=== PATIENT | female | born 1960 | race Caucasian/White ===

== ENCOUNTER 2017-08-25 07:32 | Day surgery (SDC) | payer MEDICAID ==
[~2017-08-25 07:32] MED LIST: CEFAZOLIN 2 GM/50 ML (PMX) 50 ML IVPB; LIDOCAINE 2% (SDV) 5 ML INJ; SOD CHLORIDE 0.9% 1,000 ML IV
[2017-08-25] MEDS ORDERED: PROPOFOL 100 ML (13:05)
[2017-08-25] MEDS ORDERED: FENTAnyl 50 MCG/ML VIAL ×2 (13:06→13:49)
[2017-08-25] MEDS ORDERED: KETOROLAC 30 MG INJ (13:46)
[2017-08-25] MEDS ORDERED: DEXAMETHASONE 4 MG/ML 1 ML INJ (13:47)
[2017-08-25] MEDS ORDERED: ONDANSETRON 4 MG INJ (13:48)
[2017-08-25] MEDS ORDERED: HYDROCODONE/APAP (7.5/325) TAB PO (14:30)
== END 2017-08-25 17:40 | disposition home or self-care (01) ==
LOC: SDS 07:32
DX: N60.12 Diffuse cystic mastopathy of left breast (principal); E66.9 Obesity, unspecified; Z68.32 Body mass index [BMI] 32.0-32.9, adult
CPT/HCPCS: 19120; 84703; 88307